=== PATIENT | female | born 1930 | race Asian ===

== ENCOUNTER 2018-03-26 17:59 | Emergency (ER) | payer MEDICARE ==
--- NOTE | 2018-03-26 18:38 | ED Physician Documentation ---
History of Present Illness - Stated complaint Stated Complaint: INHALED PILL/SOA - Chief complaint Chief Complaint: General - History obtained from History obtained from: Patient - History of Present Illness Timing: Other (She was swallowing her pills around 2:00 and feels like 1 of them might of gotten stuck in the chest. She is able to tolerate liquids and solids. She was briefly wheezing but that is now gone.) Review of Systems Eyes: denies: Loss of vision, Decreased vision Throat: denies: Dental pain / toothache, Sore throat Cardiac: denies: Palpitations Respiratory: denies: Dyspnea, Cough PD PAST MEDICAL HISTORY - Past Medical History Cardiovascular: Hypertension, Atrial fibrillation Respiratory: None Endocrine/Autoimmune: None GI: None : None HEENT: None, Other Psych: None Musculoskeletal: Osteoarthritis Derm: None - Past Surgical History Past Surgical History: Yes /[employer]: Hysterectomy HEENT: Cataracts Derm: Skin cancer surgery - Present Medications Home Medications: Ambulatory Orders Medication Instructions Recorded Confirmed Aspirin 325 mg PO 01/24/13 02/20/14 Vitamin E 400 unit PO 01/24/13 02/20/14 Carvedilol 6.25 mg PO 02/20/14 02/20/14 Furosemide 20 mg PO 02/20/14 02/20/14 - Allergies Allergies/Adverse Reactions: Allergies Allergy/AdvReac Type Severity Reaction Status Date / Time codeine AdvReac Unknown Nausea Verified 03/26/18 18:10 - Social History Does the pt smoke?: No Smoking Status: Never smoker Does the pt drink ETOH?: No Does the pt have substance abuse?: No - Immunizations Immunizations are current?: Yes - POLST Patient has POLST: No PD ED PE NORMAL - Vitals Vital signs reviewed: Yes - General General: Alert and oriented X 3, No acute distress - HEENT HEENT: Pharynx benign - Cardiac Cardiac: RRR, No murmur - Respiratory Respiratory: No respiratory distress, Clear bilaterally - Abdomen Abdomen: Non tender - Neuro Neuro: Alert and oriented X 3, Normal speech Results - Vitals Vitals: Vital Signs - 24 hr 03/26/18 18:03 Temperature 36.3 C L Heart Rate 84 Respiratory 18 Rate Blood Pressure 177/101 H O2 Saturation 95 Oxygen O2 Source Room air PD MEDICAL DECISION MAKING - ED course ED course: 88-year-old woman with what sounds like pill esophagitis, she is tolerating liquids just fine and there is no evidence of respiratory compromise or abnormality. - Sepsis Event Vital Signs: Vital Signs - 24 hr 03/26/18 18:03 Temperature 36.3 C L Heart Rate 84 Respiratory 18 Rate Blood Pressure 177/101 H O2 Saturation 95 Oxygen O2 Source Room air Departure - Departure Disposition: Home, Self Care Clinical Impression: Pill esophagitis Condition: Good Record reviewed to determine appropriate education?: Yes Instructions: Esophagitis Comments: Follow-up with your doctor in 3 days if symptoms are persistent, I doubt they will be. Your blood pressure was elevated today on check into the emergency department. This does not mean that you have hypertension, it is a common phenomenon to come to the emergency department and have elevated blood pressure. I recommend that you see your primary care physician within the week to have it rechecked when you are feeling better.
--- NOTE | 2018-03-26 19:32 | XRAY Report ---
Reason: poss pill in esophagous Procedure Date: 03/26/2018 Accession Number: [id number] / [id number] Procedure: XR - Chest 2 View X-Ray CPT Code: 12150 FULL RESULT: EXAM: CHEST RADIOGRAPHY EXAM DATE: 03/26/2018 07:00 PM. CLINICAL HISTORY: Poss pill in esophagus. COMPARISON: 03/16/2014. TECHNIQUE: 2 views. FINDINGS: Lungs/Pleura: Hyperexpanded with flattened diaphragm typical of COPD or asthma. No definite localized infiltrate, consolidation, effusion, or pneumothorax. Slight blunting of right costophrenic angle probably due to pleural thickening. Mediastinum: Mild cardiomegaly, decreased since previous study. Upper lobe vessels not distended. No definite foreign body. Other: Scoliosis, degenerative changes. IMPRESSION: No acute disease. [facility]
[2018-03-26 19:44] VITALS: BP 175/98
== END 2018-03-26 19:44 | disposition home or self-care (01) ==
LOC: ED 17:59
DX: K20.8 Other esophagitis (principal); I10 Essential (primary) hypertension; I48.91 Unspecified atrial fibrillation
CPT/HCPCS: 71046; 99282; 99283